=== PATIENT | female | born 1990 ===

== ENCOUNTER 2021-02-04 20:02 | Observation (INO) | payer MEDICAID, SELFPAY ==
[2021-02-04 20:30] VITALS: BMI 34.0
[2021-02-04 22:00] VITALS: BP 111/74; PULSE 70; RESP 16; TEMP 36.3; O2SAT 99
[2021-02-05] MEDS: hyDROXYzine 25 mg Capsule 50 MG PO (00:48)
[2021-02-05] MEDS: topiramate 100 mg Tablet PO ×2 (00:48→07:54)
[2021-02-05] MEDS: gabapentin 300 mg Capsule 600 MG PO ×2 (00:48→06:22)
[2021-02-05] MEDS: trazodone 100 mg Tablet PO (00:48)
--- NOTE | 2021-02-05 01:18 | PC.NURSE ---
at 0048 the patient was given 50 mg po Vistaril for complaint of anxiety. At this time resting quietly in bed.
--- NOTE | 2021-02-05 01:26 | PC.NURSE ---
30/F DEPRESSION WITH INCREASED SI DIRECT ADMIT FROM TAWANDA DANG HX DEPRESSION, GERD, HTN, ADHD, AND SEVERAL PSYCH ADMISSIONS IN THE PAST PT WAS SEEN AT THE HOSPITAL FOR INCREASED EPISODES OF DEPRESSION AND BEGINNING TO FEEL LIKE ?SHE DIDN?T CARE IF SHE WOKE UP? . PT IS STRUGGLING TO GET DISABLITY STARTED, RECENTLY DIAGNOSED WITH WILSONS DISEASE. 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 SHE IS WORKING AT THIS TIME, HAVING DIFFICULTY AT WORK D/T INCREASED DEPRESSION. PT LIVES WITH HER MOTHER AND FATHER, THEY WILL PROVIDE TRANSPORTATION HOME WHEN DISCHARGED. PT BROUGHT SEVERAL MEDICATIONS, THEY ARE RECONCILED, PHYSICIAN DR. MESSINA IS AWARE OF THEM, THEY ARE RESTARTED. PT CALM AND COOPERATIVE ON ADMIT
[2021-02-05 06:00] VITALS: BP 96/64; PULSE 69; RESP 17; TEMP 36.5; O2SAT 98; BMI 34.0
[2021-02-05] MEDS: methylphenidate 10 mg Tablet 5 MG PO (06:22)
[2021-02-05] MEDS: metoprolol succinate ER (24 HR) 50 mg Tablet PO (07:53)
[2021-02-05] MEDS: cetirizine 10 mg Tablet PO (07:54)
[2021-02-05] MEDS: fluoxetine 20 mg Capsule 80 MG PO (07:54)
[2021-02-05] MEDS: dilTIAZem ER (24HR) 240 mg Capsule PO (07:54)
[2021-02-05] MEDS: guanfacine 1 mg Tablet PO (07:54)
--- NOTE | 2021-02-05 10:57 | PM.SDS ---
Short Stay Summary Providers Date of Admit/Discharge: 02/05/21 Attending Provider: Gume Morales DO Chief Complaint: PSYCH HPI History of Present Illness Le Peralta is a 30 year old female with history of multiple medical complaints who presented to an [facility] emergency department at the request of her therapist secondary to report of worsening passive suicidal thoughts although patient states she has no history of suicide attempts and no current intent or plan of harming herself. Patient reports daily ongoing depressive symptoms and states that this is been going on for years and that she currently sees her psychiatrist on a monthly basis and her therapist every couple weeks. She has a history of 5 previous psychiatric hospitalizations with her last psychiatric hospitalization in February 2020 in the context of ongoing stressor of grandfathers illness. She denies any past history of suicide attempt. Review of Systems General: Reports: 10 or more systems reviewed and unremarkable except in HPI and below Home Meds/Allergies Home Medications and Allergies Home Medications Medication Instructions Recorded Confirmed Type cetirizine [Zyrtec] 10 mg PO DAILY 02/04/21 02/04/21 History diltiazem HCl 240 mg PO DAILY 02/04/21 02/04/21 History elagolix 150 mg PO DAILY 02/04/21 02/04/21 History fluoxetine [Prozac] 80 mg PO DAILY 02/04/21 02/04/21 History gabapentin 600 mg PO TID 02/04/21 02/04/21 History guanfacine 1 mg PO DAILY 02/04/21 02/04/21 History methylphenidate HCl 5 mg PO BID@06,14 02/04/21 02/04/21 History metoprolol succinate 50 mg PO DAILY 02/04/21 02/04/21 History montelukast 10 mg PO BEDTIME 02/04/21 02/04/21 History mupirocin 1 applic TOPICAL TID 02/04/21 02/04/21 History topiramate 100 mg PO BID@02/04/21 02/04/21 History topiramate [Topamax] 50 mg PO DAILY@13 02/04/21 02/04/21 History trazodone 100 mg PO BEDTIME 02/04/21 02/04/21 History Allergies Allergy/AdvReac Type Severity Reaction Status Date / Time carbamazepine Allergy Severe ALGY-Anaphy Verified 02/04/21 23:55 laxis erythritol Allergy Severe ALGY-Difficulty Verified 02/04/21 23:55 Breathing guaifenesin Allergy Severe ALGY-Anaphy Verified 02/04/21 23:55 laxis hornet venom Allergy Severe ALGY-Anaphy Verified 02/04/21 23:55 laxis miconazole Allergy Severe ADR-Seizure Verified 02/04/21 23:55 nystatin Allergy Severe ALGY-Difficulty Verified 02/04/21 23:55 Breathing pepper (genus Capsicum) Allergy Severe ALGY-Anaphy Verified 02/04/21 23:55 laxis Pork/Porcine Containing Allergy Severe ALGY-Hives Verified 02/04/21 23:55 Products prednisone Allergy Severe ALGY-Difficulty Verified 02/04/21 23:55 Breathing bee venom protein (honey bee) Allergy Intermediate ADR-Seizure Verified 02/04/21 23:55 lavender (Lavandula Allergy Intermediate ALGY-Difficulty Verified 02/04/21 23:55 angustifolia) Breathing tioconazole Allergy Intermediate ADR-Back Verified 02/04/21 23:55 Pain PFSH Acute PFSH: Family History Father Alcohol abuse Anxiety Atrial fibrillation Depression Migraine Mental illness in member of household Grandmother Anxiety Cardiomyopathy Depression Diabetes Heart disease Hypertension Miscarriage Multiple sclerosis Mother Cancer Cardiomyopathy Hypertension Miscarriage Brother Gout Social History Smoking risk assessment/counseling performed?: No Alcohol intake: never Substance/Drug Use: unknown Adopted: No Caregiver/support person: No Lives independently: No Household members: family Housing: House Marital status: Single Number of children: 0 Highest education level completed: High School Graduate service: No Current occupational status: disabled History of recent travel: No Current gender identity: Female Vitals/I&O/Wt Last Vital Signs Temp 97.7 F 02/05/21 06:00 Pulse 69 02/05/21 06:00 Resp 17 02/05/21 06:00 BP 96/64 02/05/21 06:00 Pulse Ox 98 02/05/21 06:00 Weight last 48 hrs Weight 81.8 kg Weight 81.8 kg Weight 81.8 kg Physical Exam Narrative: EXAM NARRATIVE: MSE: Obese, appropriately groomed and dressed, sitting comfortably in a chair in the day room, calm, cooperative, interactive, polite, good eye contact Psychomotor activity is neither increased nor decreased, no psychomotor slowing and no agitation Speech is normal rate and volume, spontaneous, clear articulation, not pressured I feel depressed, incongruent, full range of affect, not labile Alert and oriented to person, place, time, situation Memory and concentration appear to be intact per interview Intellectual functioning appears to be average based on vocabulary, interview Thought process, goal-directed, linear, organized, no flight of ideas, no looseness of associations Thought content, no delusions, no hallucinations, no suicidal or homicidal ideation Insight and judgment appear to be intact Hospital Course Hospital Course Patient's medical work-up and outlying emergency department was reviewed as part of this evaluation. 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 Patient states that she has a very complex medical and psychiatric situation that requires a higher level of care than this facility and that she is not being stimulated enough on this inpatient psychiatry unit and that she is going to need more individual therapy and programming to help her. She continues to report depressive symptoms but currently denies any suicidal ideation. She states that she has passive suicidal thoughts on a daily basis and occasionally has plans but does not describe any active intent of following through these plans and has no history of suicide attempt. Patient states that when she thinks of a plan she has a hard time getting it out of her head but denies having any intentions of following through. She reports being future oriented to include plans to continue processing for disability and Social Security. She denies ever experiencing any perceptual disturbances or delusions in the context of her depressive symptoms. She denies past or recent hypomanic or manic episodes. She denies any PTSD symptoms and denies any recent trauma. Patient psychiatric review of systems is otherwise negative. Patient reports being compliant with her medication and denies any medication side effects. Patient states that she would like to discharge in order to find a more appropriate treatment setting for her needs. Patient was restarted on her home medications with no reports of any medication side effects. Patient participate in unit milieu with no reports of any behavioral disturbances. Patient reported chronic, passive suicidal thoughts which are unchanged from her previous ongoing daily depressive symptoms and passive thoughts and does not appear to be an imminent threat of harm to self or others. Low to moderate risk of harm to self given report of daily chronic, passive suicidal thoughts with no active intent or plan with longstanding history of compliance and help seeking behavior. Risk mitigation included psychiatric hospitalization for observation for any worsening of suicidal ideation or suicidal behaviors, restarting home medication, coordination for safe discharge to include her scheduled follow-up with her psychiatrist and therapist. Patient was able to communicate her understanding of the need for ongoing compliance with her medication and medication management as well as therapy targeting the development of more adaptive coping strategies in order to further mitigate her risk of harm to self and others. Diagnoses at Discharge Discharge Diagnosis (1) Depressive disorder: Status: Acute Discharge Plan Discharge Patient Disposition: Home Condition: Stable Prescriptions: Continued metoprolol succinate 50 mg tablet extended release 24 hr 50 mg PO DAILY RF: 0 diltiazem HCl 240 mg capsule,extended release 24hr 240 mg PO DAILY RF: 0 methylphenidate HCl 5 mg tablet 5 mg PO BID@06,14 RF: 0 guanfacine 1 mg tablet 1 mg PO DAILY RF: 0 montelukast 10 mg tablet 10 mg PO BEDTIME RF: 0 mupirocin 2 % ointment 1 applic TOPICAL TID RF: 0 topiramate 50 mg tablet 100 mg PO BID@, RF: 0 gabapentin 600 mg Tablet 600 mg PO TID RF: 0 Zyrtec 10 mg Tablet 10 mg PO DAILY RF: 0 Prozac 20 mg Capsule 80 mg PO DAILY RF: 0 elagolix 150 mg Tablet 150 mg PO DAILY RF: 0 trazodone 100 mg Tablet 100 mg PO BEDTIME RF: 0 Topamax 50 mg Tablet 50 mg PO DAILY@13 RF: 0 Discharge Orders: Discharge Order (Routine); Ordered 02/05/21 Ordered By: Gume Morales Discharge Diet: Usual diet Discharge Activity: Resume usual activity Patient Instructions: Depression (DC), Opioid Safety Attestations Medical Necessity Statement*: Patient does not appear to be an imminent threat of harm to self or others; outpatient medication management and therapy of the appropriate level of care at this time. Time Spent in Patient Care*: greater than 30 min Status at Discharge: Cognitive status at discharge: cognitively intact, Behavioral status at discharge: cooperative, Functional status at discharge: independent ambulation Overall status at discharge: patient is back to baseline Quality Metrics Clinical Quality Measures: During this hospital stay, did patient experience: None Coding Level of Care Code Acute Research And Development Engineer for Chg Fwd Diagnoses Depressive disorder F32.9
[2021-02-05 11:01] VITALS: BP 96/64; PULSE 69; RESP 17; TEMP 36.5; O2SAT 99
== END 2021-02-05 13:27 | disposition home or self-care (01) ==
PROVIDERS: Admitting Provider Psychiatry & Neurology Psychiatry; Visit Provider Psychiatry & Neurology Psychiatry
DX: F32.9 Major depressive disorder, single episode, unspecified (principal)
CPT/HCPCS: G0378; G0379